=== PATIENT | female | born 1990 | race Caucasian/White ===

== ENCOUNTER 2017-05-07 02:57 | Emergency (ER) | payer OTHER ==
[2017-05-07 03:06] VITALS: BP 153/75; PULSE 85; RESP 18; TEMP 98
[2017-05-07] MEDS ORDERED: LORazepam 1 MG TAB PO STA (03:20)
--- NOTE | 2017-05-07 03:22 | ED ---
General Adult HPI - General Chief complaint: Anxiety Stated complaint: anxiety Time Seen by Provider: 05/07/17 03:00 Source: patient, RN notes reviewed Mode of arrival: ambulatory Limitations: no limitations - History of Present Illness Initial comments: This is a 27-year-old female presents emergency department with past medical history significant for anxiety. Patient states anxiety attacks becoming more frequent over the last week and she is starting to have panic attacks. Patient states tonight she took some Klonopin about 11:00 but it did not have any effect. Patient states she didn't know what else to do so she came to the emergency department. Patient states she is going to be going to a day program starting tomorrow. Patient states nothing seems to have happened over the last week that would make her more anxious and she realizes anxiety is probably irrational. Patient denies any physical complaints today. Patient denies headache patient denies any numbness weakness. Patient denies chest pain difficulty breathing or shortness of breath per patient denies any recent fever chills or cough. Patient denies any abdominal pain patient denies nausea vomiting diarrhea. Patient denies any illegal drug use. Patient denies any alcohol use. - Related Data Home Medications Medication Instructions Recorded Confirmed Diphenoxylate HCl/Atropine 1 tab PO QID PRN 06/03/15 06/03/15 [Lomotil] Ranitidine HCl [Zantac] 150 mg PO BID 06/03/15 06/03/15 Sertraline HCl [Zoloft] 150 mg PO DAILY 06/03/15 06/03/15 clonazePAM [KlonoPIN] 0.5 mg PO TID PRN 06/03/15 06/03/15 Previous Rx's Medication Instructions Recorded LORazepam [Ativan] 1 mg PO BID #10 tab 05/07/17 Allergies Allergy/AdvReac Type Severity Reaction Status Date / Time No Known Allergies Allergy Verified 05/07/17 03:06 Review of Systems ROS Statement: Those systems with pertinent positive or pertinent negative responses have been documented in the HPI. ROS Other: All systems not noted in ROS Statement are negative. Past Medical History Past Medical History: No Reported History Additional Past Medical History / Comment(s): IBS History of Any Multi-Drug Resistant Organisms: None Reported Past Surgical History: No Surgical Hx Reported Past Psychological History: Anxiety, Depression Smoking Status: Never smoker Past Alcohol Use History: None Reported Past Drug Use History: Marijuana General Exam - General Exam Comments Initial Comments: GENERAL: Patient is well-developed and well-nourished. Patient is nontoxic and well- hydrated and is in no acute distress. ENT: Neck is soft and supple. No significant lymphadenopathy is noted. EYES: The sclera were anicteric and conjunctiva were pink and moist. Extraocular movements were intact and pupils were equal round and reactive to light. Eyelids were unremarkable. SKIN: Skin is clear with no lesions or rashes and otherwise unremarkable. NEUROLOGIC: Patient is alert and oriented x3. Cranial nerves II through XII are grossly intact. Motor and sensory are also intact. Normal speech, volume and content. Symmetrical smile. MUSCULOSKELETAL: Normal extremities with adequate strength and full range of motion. No lower extremity swelling or edema. No calf tenderness. PSYCHIATRIC: Patient is mildly anxious and tearful throughout the interview. Limitations: no limitations Course Vital Signs 05/07/17 03:02 Temperature 98 F Pulse Rate 85 Respiratory 18 Rate Blood Pressure 153/75 O2 Sat by Pulse 100 Oximetry Disposition Clinical Impression: Acute anxiety Disposition: HOME SELF-CARE Instructions: Generalized Anxiety Disorder (ED) Prescriptions: LORazepam [Ativan] 1 mg PO BID #10 tab Referrals: Randi Mccullough MD [Primary Care Provider] - 1-2 days Time of Disposition: 03:22
== END 2017-05-07 03:29 | disposition home or self-care (01) ==
LOC: EC 02:57
DX: F41.9 Anxiety disorder, unspecified (principal); F32.9 Major depressive disorder, single episode, unspecified; Z79.899 Other long term (current) drug therapy
CPT/HCPCS: 99283